=== PATIENT | male | born 1985 | race African-American/Black ===

== ENCOUNTER → 2017-01-01 | Emergency (ER) | payer SELFPAY ==
[~2017-01-01] VITALS: Ht 172.7 cm; Wt 78.0 kg
[2017-01-01 09:13] VITALS: BP 141/98
--- NOTE | 2017-01-01 10:34 | Emergency Room Report ---
History of Present Illness General Chief Complaint: Abdominal Pain Source: EMS Present Illness Allergies: Coded Allergies: No Known Allergies (Unverified , 01/01/17) Nursing Documentation-PMH Hx Hypertension: Yes Physical Exam Vital Signs Date Time Temp Pulse Resp B/P Pulse Ox O2 Delivery O2 Flow Rate FiO2 01/01/17 09:13 98.6 66 16 141/98 100 Room Air Medical Decision Making Reevaluation Time: 10:34 Last Vital Signs Date Time Temp Pulse Resp B/P Pulse Ox O2 Delivery O2 Flow Rate FiO2 01/01/17 09:13 98.6 66 16 141/98 100 Room Air Reevaluation Impression Informed by RN that patient LWBS. I did not see or talk to patient in ED. He allegedly left on own power, had no complaints. Disposition: LEFT W/OUT BEING SEEN Referrals: NOT CHOSEN IPA/,REFERRING (PCP) LARA MUNIZ M.D. Jan 01, 2017 10:34
== END | disposition left against medical advice (07) ==
LOC: EDUNIT# 09:13 → EDBD 09:20 → EMR 09:30
DX: R10.9 Unspecified abdominal pain (principal); I10 Essential (primary) hypertension; Z53.21 Procedure and treatment not carried out due to patient leaving prior to being seen by health care provider
CPT/HCPCS: 99281